=== PATIENT | male | born 1990 | race Caucasian/White ===

== ENCOUNTER 2022-10-26 21:39 | Emergency (ER) | payer SELFPAY ==
[~2022-10-26] VITALS: Ht 162.6 cm; Wt 67.1 kg
[2022-10-26 21:45] VITALS: BP 150/90
--- NOTE | 2022-10-26 21:45 | NUR ---
TO BED AMBULATORY
--- NOTE | 2022-10-26 22:20 | NUR ---
Dr. Castillo examining patient.
--- NOTE | 2022-10-26 22:22 | NUR ---
pt walked in c/o getting poked in the cheek with a thorn from an orange . No active bleeding noted, no lacerations, mild erythema noted. pt states it bleeds with he squeezes it.
[2022-10-26] MEDS ORDERED: IBUP-1842 PO (22:28)
[2022-10-26] MEDS ORDERED: BACI-416 TP (22:28)
[2022-10-26 22:45] VITALS: BP 150/90
--- NOTE | 2022-10-26 22:45 | NUR ---
Patient discharged with v/s stable. Written and verbal after care instructions given and explained. Patient alert, oriented and verbalized understanding of instructions. Ambulatory with steady gait. All questions addressed prior to discharge. ID band removed. Patient advised to follow up with PMD. Rx of MOTRIN AND BACITRACIN given. Patient educated on indication of medication including possible reaction and side effects. Opportunity to ask questions provided and answered.
== END 2022-10-26 22:45 | disposition home or self-care (01) ==
LOC: MED 21:39
DX: S00.512A Abrasion of oral cavity, initial encounter (principal); L40.9 Psoriasis, unspecified; Z79.899 Other long term (current) drug therapy; W22.8XXA Striking against or struck by other objects, initial encounter; Y93.89 Activity, other specified; Y92.89 Other specified places as the place of occurrence of the external cause; Y99.8 Other external cause status
CPT/HCPCS: 99282

== ENCOUNTER 2023-10-28 05:47 | Emergency (ER) | payer MEDICAID ==
[~2023-10-28] VITALS: Ht 162.6 cm; Wt 54.4 kg
[~2023-10-28 05:47] MED LIST: BACI-418 TP; IBUP-1842 PO
[2023-10-28 05:48] VITALS: BP 133/89; PULSE 84; RESP 16; TEMP 97.9; O2SAT 100
[2023-10-28] MEDS ORDERED: BETA0.0521 TP (05:59)
[2023-10-28 06:04] VITALS: BP 133/89; PULSE 84; RESP 16; TEMP 97.9; O2SAT 100
== END 2023-10-28 06:05 | disposition home or self-care (01) ==
LOC: MED 05:47
DX: S41.111A Laceration without foreign body of right upper arm, initial encounter (principal); L40.9 Psoriasis, unspecified; Z79.899 Other long term (current) drug therapy; X58.XXXA Exposure to other specified factors, initial encounter; Y93.89 Activity, other specified; Y92.89 Other specified places as the place of occurrence of the external cause; Y99.8 Other external cause status
CPT/HCPCS: 12001; 99283